=== PATIENT | male | born 1950 | race Caucasian/White ===

== ENCOUNTER 2016-06-09 09:14 | Day surgery (SDC) | payer MEDICARE, OTHER ==
[~2016-06-09] VITALS: Ht 175.3 cm; Wt 93.0 kg
--- NOTE | 2016-06-09 07:22 | PCM.HPANE ---
Patient Data Surgeon Admitting Provider: Attending Provider:Mateo Jacobsen MD Primary Care Physician:Sven Nogueira MD Other Provider:Sandoval Castillo Anesthesia Reason for Visit Altered Bowel Habits Ht/WT & BMI Body Mass Index Allergies Coded Allergies: Vfbymxp-Myf-Zbx Reductase Inhibitor (Verified Allergy, Unknown, WEAKNESS, 06/09/16) Diabetes History Hx Diabetes?: No Medications Hypertension Medication: Yes Home Meds Incl Beta Nneka: Yes Date Beta Nneka Taken: Jun 09, 2016 Time Beta Nneka Taken: 05:30 Reported Medications Ezetimibe (Zetia)10 Mg Acthkf61 Mg PO DAILY 30 Days Ref 0 06/08/16 Ranitidine (Zantac)150 Mg [id number] Mg PO BID 06/08/16 Warfarin Sodium 5 Mg Tablet5 Mg PO DAILY 30 Days Ref 0 06/08/16 Fenofibric Acid (Choline) (Trilipix)135 Mg Capsule.dr135 Mg PO DAILY 06/08/[address] (Protonix)40 Mg Sfrhat37 Mg PO DAILY Ref 0 06/08/16 Metoprolol Succinate ER 25 Mg Tab.er.24h25 Mg PO DAILY Ref 0 06/08/16 Dicyclomine 10 Mg/5 Ml Xfaivfon37 Mg PO BID 06/08/16 History Hx of Heart Problems?: Yes Cardiovascular History: Positive for:: Coronary Artery Disease Thrombophlebitis Hx of Respiratory Problem?: No Hx Neurologic Problems?: No Stop/Bang Risk Assessment Category Category 1A: Patient has history of documented sleep apnea, and HAS NOT received any narcotic, sedative or anesthesia administration during this stay. Category 1B: Patient has history of documented sleep apnea, and HAS received any narcotic , sedative or anesthesia administration during this stay Category 2: Patient has SUSPECTED Obstructive Sleep Apnea, and HAS received any narcotic , sedative or anesthesia administration during this stay. Category 3: Patient has SUSPECTED Obstructive Sleep Apnea and HAS NOT received narcotic, sedative or anesthesia administration during this stay. Category 4: Outpatient in Procedural Areas with known sleep apnea or who screen positive for High Risk via the STOP/BANG questionnaire. Exam Exam General Appearance: Alert, Oriented X3, Cooperative, No Acute Distress HEENT/AIRWAY: MP 2 Lungs: Normal Air Movement Heart: Exam Unremarkable Plan Impression Patient chart reviewed, patient interviewed and anesthestic plan with risks, benefits, and alternatives discussed, and informed consent obtained. ASA Physical Status: ASA3 Severe Disease (CAD, A-Fib, pacer) Anesthetic Plan: MAC Bene/Risks/Altern/Consents: Yes HP Complete Prior to Induction: Yes Jens Jain MD Jun 09, 2016 07:22
[~2016-06-09 09:14] MED LIST: DICY10SO PO; EZET10TA PO; FENO135C PO; Lactated Ringer's 1,000 ML IV ONE; METO25TA99 PO; PANT40TA2 PO; RANI150T11 PO; WARF5TAB7 PO
[2016-06-09] MEDS ORDERED: fentaNYL-PF 50 mCg/mL 2 mL Inj ONE (09:15)
[2016-06-09] MEDS ORDERED: Propofol 10,000 mCg/mL 20 mL Inj ONE (09:15)
[2016-06-09 09:47] VITALS: BP 128/89; PULSE 72; RESP 14; O2SAT 96
[2016-06-09 10:48] VITALS: BP 110/83; PULSE 79; RESP 15; O2SAT 94
--- NOTE | 2016-06-09 10:50 | PCM.ANEP1 ---
Post Anesthesia Phase 1 PACU Phase 1 Assessment Vital Signs see anesthesia record Vital Signs Date Time Temp Pulse Resp B/P Pulse Ox O2 Delivery O2 Flow Rate FiO2 06/09/16 10:48 79 15 110/83 94 Room Air 06/09/16 09:47 72 14 128/89 96 Room Air Anesthetic Administered: MAC Level of Alertness: Awake, talking MOURA's with Equal Strength: Yes Pain: No Nausea or Vomiting: No Oxygen Delivery: Room Air Lungs: Normal Air Movement Dermatome Level: Full Sensation Jens Jain MD Jun 09, 2016 10:50
--- NOTE | 2016-06-09 10:50 | PCM.ANEP2 ---
Post Anesthesia Evaluation ASA/CMS Post Anesthesia VS in Patient's Normal Range?: Yes Resp Stable; Airway Patent?: Yes CV Function & Hydration Stable: Yes Mental Status Recovered?: Yes Pain control Satisfactory?: Yes N/V Control Satisfactory?: Yes Jens Jain MD Jun 09, 2016 10:50
[2016-06-09 11:01] VITALS: BP 104/88; PULSE 81; RESP 15; O2SAT 92
[2016-06-09 11:10] VITALS: BP 119/88; PULSE 11; PULSE 81; RESP 15; O2SAT 94
--- NOTE | 2016-06-09 11:44 | ENDO ---
[address] [address] ENDOSCOPY PROCEDURE PATIENT: ASAF HARRIS : 1950 MR#: [id number] ADMIT: 06/09/2016 JOB ID: [id number] DATE: 06/09/2016 PRIMARY PROVIDER: Ada George M.D. PROCEDURE: 1. Esophagogastroduodenoscopy with biopsy. 2. Colonoscopy with cold forceps polypectomy. INDICATIONS: A 66-year-old male with symptoms of gastroesophageal reflux. He also has reported generalized abdominal pain and altered bowel habit. Both EGD and colonoscopy are, therefore, pursued. EQUIPMENT: GIF H 180 J and a PCF H 180 AL. SEDATION: Monitored anesthesia as provided by Dr. Jens Jain. COMPLICATIONS: None identified. BOWEL PREPARATION: Fair at best. In the right colon, there was a moderate amount of adherent stool debris on the hdz requiring copious amounts of irrigation and suction. PROCEDURAL INFORMATION: After the risks and benefits were explained, written and verbal informed consent was obtained. The patient was brought into the endoscopy suite and placed into the left lateral decubitus position. Sedation was achieved using the above-stated medications with the addition of oxygen via nasal cannula. The scope was introduced into the mouth through the bite block, and advanced under direct visualization to the second portion of the duodenum. The scope was slowly withdrawn to carefully examine the mucosa for any defects or lesions. Retroflexed views were accomplished in the stomach. The stomach was decompressed. The scope removed from the patient who tolerated the procedure well. The patient was then turned around. A digital rectal examination accomplished. No significant pathology appreciated. The scope was introduced into the rectum and advanced under direct visualization to the level of the cecum, as identified by the appendiceal orifice and ileocecal valve. The scope was slowly withdrawn to carefully examine the mucosa for any defects or lesions. Multiple direct views were made through the dentate line for exclusion of pathology. The colon was decompressed. The scope removed from the patient who tolerated the procedure well. FINDINGS: 1. Duodenum: No pathology identified from the bulb through to the second portion. 2. Stomach: The patient had a mild nonspecific gastropathy seen throughout. A couple of small biopsies were acquired for histopathologic analysis and exclusion of H pylori. No ulcers, no mass lesions. No outlet obstruction. Retroflexed views of the LES were unremarkable. 3. Esophagus: The squamocolumnar junction correlated with the top of the gastric folds. No acute erosive changes. No strictures. No mass lesions. Subtle sliding hiatal hernia noted. The GE junction was at 41 cm from the incisors. The remainder of the esophagus was unremarkable. 4. Colon: In the transverse colon. There was a diminutive perhaps 3 mm polyp removed with cold forceps. Otherwise, I did not see any evidence of macroscopic colitis. No mass lesions. No other significant polyps noted. Moderate internal hemorrhoids were noted on direct views and there were some scattered diverticula through the left colon. ENDOSCOPIC DIAGNOSES: 1. Small sliding hiatal hernia. 2. Mild diffuse gastropathy. 3. Colon polyp. 4. Diverticulosis. 5. Hemorrhoids. RECOMMENDATIONS: 1. Await histopathology. 2. The patient can restart anticoagulation and even his Lovenox this evening. 3. If the polyp is returned adenomatous, repeat colonoscopy in five years. 4. Proceed with fiber regimen as recommended in GI Clinic by Ngoc Courtney. 5. Continue anti-reflux regimen. 6. Followup in clinic with Ngoc Courtney in the next 3-4 weeks.
--- NOTE | 2016-06-10 11:06 | PATH ---
SURGICAL PATHOLOGY Attending Physician:Claribel Gonzáles CASE STATUS: Signed Out PATIENT NAME: ASAF HARRIS PID: [id number] : 1950 DATE COLLECTED:06/09/2016 18:10 SPECIMEN: 1: Gastric, Biopsy 2: Colon, Biopsy CLINICAL HISTORY: 1). RANDOM GASTRIC BIOPSY 2). TRANSVERSE POLYP X 1 FINAL DIAGNOSIS: 1. Random Gastric Biopsy: Normal gastric corpus. No significant inflammation identified. Negative for Helicobacter organisms. Negative for intestinal metaplasia. No evidence of malignancy or dysplasia. 2. Transverse Colon Polyp: Tubular adenoma. ICD10 D12.6 GROSS DESCRIPTION: The specimen is received in two formalin filled containers labeled with the patient's name. 1). The specimen is sublabeled "random gastric" and consists of 2 portions of tissue which aggregate to 0.3 x 0.3 x 0.2 CM. The specimen is entirely submitted in cassette 1A. 2). The specimen is sublabeled "transverse polyp" and consists of a 0.3 x 0.3 x 0.2 CM portion of tissue which is entirely submitted in cassette 2A. 06/09/2016 [facility] ICD-9 CODES: CPT CODES: 1: 75964 2: 85172 Electronically Signed Out Jose Alvarez MD [facility] Pathology [facility] [address], [place] [address] Technical component performed at [facility], [facility] [address], [place], [address]
== END 2016-06-09 23:59 | disposition home or self-care (01) ==
LOC: END 09:14
PROVIDERS: ATTEND Internal Medicine Gastroenterology
DX: D12.3 Benign neoplasm of transverse colon (principal); K57.30 Diverticulosis of large intestine without perforation or abscess without bleeding; K64.9 Unspecified hemorrhoids; K44.9 Diaphragmatic hernia without obstruction or gangrene; R19.4 Change in bowel habit; K21.9 Gastro-esophageal reflux disease without esophagitis; R10.13 Epigastric pain; I10 Essential (primary) hypertension; I25.10 Atherosclerotic heart disease of native coronary artery without angina pectoris; I80.9 Phlebitis and thrombophlebitis of unspecified site; Z79.01 Long term (current) use of anticoagulants
CPT/HCPCS: 43239; 45380; 88305; J2250; J3010; J7120